=== PATIENT | female | born 1935 | race African-American/Black ===

== ENCOUNTER 2021-11-13 22:12 | Inpatient (IN) | payer MEDICARE ==
[~2021-11-13] VITALS: Ht 157.5 cm; Wt 41.5 kg
[2021-11-13 23:00] VITALS: BP 121/64
[2021-11-13] MEDS ORDERED: CEFTRIAXONE 1 GM VIAL IV SCH (23:00)
[2021-11-13] MEDS ORDERED: LATANOPROST2.5 ML OP (23:26)
[2021-11-13] MEDS ORDERED: AMLODIPINE BESYL5 MG PO (23:26)
[2021-11-13] MEDS ORDERED: ACYCLOVIR200 MG PO (23:26)
[2021-11-13] MEDS ORDERED: CITALOPRAM HBR20 MG PO (23:26)
[2021-11-14] VITALS (26 sets, daily range): BP systolic 102–149; BP diastolic 63–90
[2021-11-14] MEDS: IPRATROPIUM BROMIDE INHALER 12.9 GM INH INH SCH ×6 (00:15→19:15)
[2021-11-14] MEDS ORDERED: ALBUTEROL/IPRATROPIUM 3 ML NEB NEB SCH (01:00)
[2021-11-14] MEDS ORDERED: ALBUTEROL SULFATE HFA 8GM INHALATION AEROSOL INH PRN (03:00)
[2021-11-14] MEDS ORDERED: DOCUSATE SODIUM 100 MG CAP PO PRN (03:00)
[2021-11-14] MEDS ORDERED: ONDANSETRON HCL INJ 2MG/ML 2ML 2 MG/ML VIAL IV PRN (03:00)
[2021-11-14] MEDS ORDERED: ACETAMINOPHEN 325 MG TAB PO PRN (03:00)
[2021-11-14 03:49] LABS: ABG HCO3 37 mmol/L (22-26); ABG PCO2 47 mmHg (35-45); ABG PO2 118 mmHg (80-105); ABG TCO2 39
[2021-11-14 05:07] LABS: LYMPHOCYTES # (AUTO) 0.3 (1.0-3.2); MEAN CORPUSCULAR HEMOGLOBIN 33.1 pg (28-32); MEAN CORPUSCULAR HGB CONC 33.3 g/dL (31-35); MEAN CORPUSCULAR VOLUME 99.3 fL (81-99); MONOCYTES # (AUTO) 0.3 (0.2-0.8); NEUTROPHILS # (AUTO) 3.9 (2.1-6.9); NEUTROPHILS % 87.6 % (38.7-80.0); PLATELET COUNT 130 x10e3/uL (140-360); RED BLOOD COUNT 4.53 x10e6/uL (3.6-5.1); RED CELL DISTRIBUTION WIDTH 12.4 % (11.7-14.4)
[2021-11-14 05:13] LABS: INR 0.85; PROTHROMBIN TIME 12.3 seconds (11.9-14.5)
[2021-11-14 05:14] LABS: PARTIAL THROMBOPLASTIN TIME 27.3 seconds (23.8-35.5)
[2021-11-14 05:27] LABS: ALBUMIN 2.5 g/dL (3.5-5.0); ALBUMIN/GLOBULIN RATIO 0.9 (0.8-2.0); ANION GAP 14.9 mmol/L (8-16); CALCIUM 8.8 mg/dL (8.4-10.2); CREATININE, SERUM 0.63 mg/dL (0.57-1.11)
[2021-11-14 05:35] LABS: POTASSIUM 2.9 mmol/L (3.5-5.1)
[2021-11-14] MEDS ORDERED: METHYLPREDNISOLONE SOD SUCC 40 MG/ML VIAL 1ML IV SCH (06:00)
[2021-11-14] MEDS: POTASSIUM CHLORIDE 20MEQ/100ML 100 ML IV SCH ×2 (06:16→08:31)
[2021-11-14] MEDS ORDERED: SODIUM CHLORIDE 0.9% 250ML 250 ML ONE ×2 (06:29→16:23)
[2021-11-14] MEDS: ZINC SULFATE 50 MG CAP PO SCH (08:32)
[2021-11-14] MEDS: ASCORBIC ACID 500 MG TAB PO SCH ×2 (08:32→16:28)
[2021-11-14] MEDS: MULTIVITAMINS/MINERALS TAB PO SCH (08:32)
[2021-11-14] MEDS ORDERED: CEFTRIAXONE SOD 1 GM 50 ML IV SCH (09:00)
[2021-11-14] MEDS ORDERED: DEXAMETHASONE SOD PHOS 10 MG/1 ML VIAL IV SCH (09:00)
[2021-11-14] MEDS ORDERED: CEFTRIAXONE 1 GM VIAL IV SCH ×2 (09:00)
[2021-11-14] MEDS ORDERED: CEFTRIAXONE 1 GM in SODIUM CHLORIDE 0.9% 50ML 50 ML IV SCH (09:00)
[2021-11-14] MEDS: ENOXAPARIN SOD INJ 40 MG/0.4 ML SYR SC SCH ×2 (10:11→20:08)
[2021-11-14] MEDS ORDERED: SOD CHL 0.45%/POT CHL 20MEQ 1,000 ML IV ONE (10:30)
[2021-11-14] MEDS ORDERED: REMDESIVIR 200MG 200 MG in SODIUM CHLORIDE 0.9% 100 ML IV ONE (12:00)
[2021-11-14] MEDS: CEFTRIAXONE 1 GM in SODIUM CHLORIDE 0.9% 50ML 50 ML IV SCH (15:57)
[2021-11-14] MEDS ORDERED: ENOXAPARIN SOD INJ 40 MG/0.4 ML SYR SC SCH (17:00)
[2021-11-14] MEDS: METHYLPREDNISOLONE SOD SUCC 40 MG/ML VIAL 1ML IV SCH (20:08)
[2021-11-15] VITALS (21 sets, daily range): BP systolic 121–154; BP diastolic 66–99
[2021-11-15] MEDS: IPRATROPIUM BROMIDE INHALER 12.9 GM INH INH SCH ×6 (03:20→23:00)
[2021-11-15 05:01] LABS: BASOPHILS % 0.1 % (0.0-1.0); HEMATOCRIT 47.2 % (34.2-44.1); HEMOGLOBIN 15.2 g/dL (12.0-16.0); LYMPHOCYTES # (AUTO) 0.4 (1.0-3.2); LYMPHOCYTES % 6.1 % (18.0-39.1); MEAN CORPUSCULAR HEMOGLOBIN 32.8 pg (28-32); MEAN CORPUSCULAR HGB CONC 32.2 g/dL (31-35); MEAN CORPUSCULAR VOLUME 101.9 fL (81-99); MONOCYTES # (AUTO) 0.6 (0.2-0.8); NEUTROPHILS # (AUTO) 6.1 (2.1-6.9); NEUTROPHILS % 84.8 % (38.7-80.0); PLATELET COUNT 141 x10e3/uL (140-360); RED BLOOD COUNT 4.63 x10e6/uL (3.6-5.1); RED CELL DISTRIBUTION WIDTH 12.4 % (11.7-14.4)
[2021-11-15 05:28] LABS: ALBUMIN 2.4 g/dL (3.5-5.0); ALBUMIN/GLOBULIN RATIO 0.8 (0.8-2.0); ANION GAP 13.8 mmol/L (8-16); CALCIUM 8.5 mg/dL (8.4-10.2); CREATININE, SERUM 0.53 mg/dL (0.57-1.11); POTASSIUM 3.8 mmol/L (3.5-5.1)
[2021-11-15] MEDS: MULTIVITAMINS/MINERALS TAB PO SCH (09:01)
[2021-11-15] MEDS: ZINC SULFATE 50 MG CAP PO SCH (09:01)
[2021-11-15] MEDS: METHYLPREDNISOLONE SOD SUCC 40 MG/ML VIAL 1ML IV SCH ×2 (09:01→21:03)
[2021-11-15] MEDS: ASCORBIC ACID 500 MG TAB PO SCH ×2 (09:01→17:18)
[2021-11-15] MEDS: ENOXAPARIN SOD INJ 40 MG/0.4 ML SYR SC SCH ×2 (09:01→21:03)
[2021-11-15] MEDS: REMDESIVIR 100MG 100 MG in SODIUM CHLORIDE 0.9% 100 ML IV SCH (11:28)
[2021-11-15] MEDS: CEFTRIAXONE 1 GM in SODIUM CHLORIDE 0.9% 50ML 50 ML IV SCH (14:43)
[2021-11-15] MEDS ORDERED: SODIUM CHLORIDE 0.9% 250ML 500 ML ONE (14:50)
[2021-11-16] VITALS (8 sets, daily range): BP systolic 132–149; BP diastolic 81–98
[2021-11-16] MEDS: IPRATROPIUM BROMIDE INHALER 12.9 GM INH INH SCH ×6 (03:15→23:59)
[2021-11-16 06:01] LABS: BASOPHILS % 0.1 % (0.0-1.0); HEMATOCRIT 51.8 % (34.2-44.1); HEMOGLOBIN 16.7 g/dL (12.0-16.0); LYMPHOCYTES # (AUTO) 0.5 (1.0-3.2); LYMPHOCYTES % 5.4 % (18.0-39.1); MEAN CORPUSCULAR HEMOGLOBIN 32.8 pg (28-32); MEAN CORPUSCULAR HGB CONC 32.2 g/dL (31-35); MEAN CORPUSCULAR VOLUME 101.8 fL (81-99); MONOCYTES # (AUTO) 0.6 (0.2-0.8); MONOCYTES % 7.5 % (4.4-11.3); NEUTROPHILS # (AUTO) 7.2 (2.1-6.9); NEUTROPHILS % 85.7 % (38.7-80.0); PLATELET COUNT 186 x10e3/uL (140-360); RED BLOOD COUNT 5.09 x10e6/uL (3.6-5.1); RED CELL DISTRIBUTION WIDTH 12.5 % (11.7-14.4)
[2021-11-16 06:26] LABS: ALBUMIN 2.4 g/dL (3.5-5.0); ALBUMIN/GLOBULIN RATIO 0.8 (0.8-2.0); ANION GAP 14.5 mmol/L (8-16); CALCIUM 8.9 mg/dL (8.4-10.2); CREATININE, SERUM 0.58 mg/dL (0.57-1.11); POTASSIUM 3.5 mmol/L (3.5-5.1)
[2021-11-16] MEDS: METHYLPREDNISOLONE SOD SUCC 40 MG/ML VIAL 1ML IV SCH ×2 (08:58→20:56)
[2021-11-16] MEDS: ZINC SULFATE 50 MG CAP PO SCH (08:58)
[2021-11-16] MEDS: MULTIVITAMINS/MINERALS TAB PO SCH (08:58)
[2021-11-16] MEDS: ENOXAPARIN SOD INJ 40 MG/0.4 ML SYR SC SCH ×2 (08:58→20:56)
[2021-11-16] MEDS: ASCORBIC ACID 500 MG TAB PO SCH ×2 (08:58→16:34)
[2021-11-16] MEDS: REMDESIVIR 100MG 100 MG in SODIUM CHLORIDE 0.9% 100 ML IV SCH (12:09)
[2021-11-16] MEDS: CEFTRIAXONE 1 GM in SODIUM CHLORIDE 0.9% 50ML 50 ML IV SCH (16:31)
[2021-11-17] VITALS (7 sets, daily range): BP systolic 132–173; BP diastolic 77–97
[2021-11-17] MEDS: IPRATROPIUM BROMIDE INHALER 12.9 GM INH INH SCH ×6 (03:17→23:20)
[2021-11-17] MEDS: HYDRALAZINE HCL 20 MG/ML VIAL IV PRN (05:12)
[2021-11-17 06:21] LABS: BASOPHILS % 0.2 % (0.0-1.0); HEMATOCRIT 55.1 % (34.2-44.1); HEMOGLOBIN 18.3 g/dL (12.0-16.0); LYMPHOCYTES # (AUTO) 0.6 (1.0-3.2); LYMPHOCYTES % 5.4 % (18.0-39.1); MEAN CORPUSCULAR HEMOGLOBIN 32.8 pg (28-32); MEAN CORPUSCULAR HGB CONC 33.2 g/dL (31-35); MEAN CORPUSCULAR VOLUME 98.7 fL (81-99); MONOCYTES # (AUTO) 0.6 (0.2-0.8); MONOCYTES % 5.5 % (4.4-11.3); NEUTROPHILS # (AUTO) 9.5 (2.1-6.9); PLATELET COUNT 236 x10e3/uL (140-360); RED BLOOD COUNT 5.58 x10e6/uL (3.6-5.1); RED CELL DISTRIBUTION WIDTH 12.3 % (11.7-14.4)
[2021-11-17 06:42] LABS: ALBUMIN 2.6 g/dL (3.5-5.0); ALBUMIN/GLOBULIN RATIO 0.9 (0.8-2.0); ANION GAP 17.1 mmol/L (8-16); CALCIUM 8.5 mg/dL (8.4-10.2); CREATININE, SERUM 0.56 mg/dL (0.57-1.11); POTASSIUM 3.1 mmol/L (3.5-5.1)
[2021-11-17] MEDS ORDERED: POTASSIUM CHLORIDE 20 MEQ TAB CR PO STA (08:43)
[2021-11-17] MEDS: ENOXAPARIN SOD INJ 40 MG/0.4 ML SYR SC SCH (09:05)
[2021-11-17] MEDS: METHYLPREDNISOLONE SOD SUCC 40 MG/ML VIAL 1ML IV SCH (09:05)
[2021-11-17] MEDS: ZINC SULFATE 50 MG CAP PO SCH (09:05)
[2021-11-17] MEDS: MULTIVITAMINS/MINERALS TAB PO SCH (09:05)
[2021-11-17] MEDS: ASCORBIC ACID 500 MG TAB PO SCH ×2 (09:05→17:00)
[2021-11-17] MEDS ORDERED: AMIODARONE 900MG 500 ML IV ONE (11:00)
[2021-11-17] MEDS: REMDESIVIR 100MG 100 MG in SODIUM CHLORIDE 0.9% 100 ML IV SCH (11:47)
[2021-11-17] MEDS: METOPROLOL TARTRATE 25 MG TAB PO SCH (17:01)
[2021-11-17] MEDS ORDERED: METHYLPREDNISOLONE SOD SUCC 40 MG/ML VIAL 1ML IV SCH (21:00)
[2021-11-17] MEDS: ENOXAPARIN 30 MG/0.3 ML SYR SC SCH (21:14)
[2021-11-18] VITALS (8 sets, daily range): BP systolic 152–175; BP diastolic 92–96
[2021-11-18] MEDS: IPRATROPIUM BROMIDE INHALER 12.9 GM INH INH SCH ×6 (03:25→23:40)
[2021-11-18] MEDS: METHYLPREDNISOLONE SOD SUCC 40 MG/ML VIAL 1ML IV SCH (06:08)
[2021-11-18] MEDS: ENOXAPARIN 30 MG/0.3 ML SYR SC SCH ×2 (08:46→20:42)
[2021-11-18] MEDS: MULTIVITAMINS/MINERALS TAB PO SCH (08:46)
[2021-11-18] MEDS: ZINC SULFATE 50 MG CAP PO SCH (08:46)
[2021-11-18] MEDS: ASCORBIC ACID 500 MG TAB PO SCH ×2 (08:46→17:05)
[2021-11-18] MEDS: METOPROLOL TARTRATE 25 MG TAB PO SCH ×2 (08:46→17:05)
[2021-11-18] MEDS: REMDESIVIR 100MG 100 MG in SODIUM CHLORIDE 0.9% 100 ML IV SCH (12:22)
[2021-11-18] MEDS ORDERED: REMDESIVIR 100MG 100 MG IV ONE (12:34)
[2021-11-18] MEDS ORDERED: SODIUM CHLORIDE 0.9% 100 ML ONE (13:01)
[2021-11-18] MEDS: HYDRALAZINE HCL 20 MG/ML VIAL IV PRN (20:59)
[2021-11-19] VITALS (10 sets, daily range): BP systolic 121–171; BP diastolic 87–108
[2021-11-19] MEDS: IPRATROPIUM BROMIDE INHALER 12.9 GM INH INH SCH ×6 (03:54→23:16)
[2021-11-19] MEDS: METHYLPREDNISOLONE SOD SUCC 40 MG/ML VIAL 1ML IV SCH (06:28)
[2021-11-19] MEDS: CITALOPRAM HYDROBROMIDE 20 MG TAB PO SCH (08:32)
[2021-11-19] MEDS: ZINC SULFATE 50 MG CAP PO SCH (08:33)
[2021-11-19] MEDS: MULTIVITAMINS/MINERALS TAB PO SCH (08:33)
[2021-11-19] MEDS: ASCORBIC ACID 500 MG TAB PO SCH ×2 (08:33→16:53)
[2021-11-19] MEDS: METOPROLOL TARTRATE 25 MG TAB PO SCH (08:33)
[2021-11-19] MEDS: ENOXAPARIN 30 MG/0.3 ML SYR SC SCH ×2 (08:33→21:50)
[2021-11-19] MEDS ORDERED: ONDANSETRON HCL 4 MG ORAL DISINTEGRATING TAB PO PRN (08:45)
[2021-11-19] MEDS: AMIODARONE HCL 200 MG TAB PO SCH ×2 (11:28→16:53)
[2021-11-19 12:19] LABS: BASOPHILS % 0.2 % (0.0-1.0); HEMOGLOBIN 17.6 g/dL (12.0-16.0); LYMPHOCYTES # (AUTO) 0.4 (1.0-3.2); LYMPHOCYTES % 2.2 % (18.0-39.1); MEAN CORPUSCULAR HGB CONC 32.6 g/dL (31-35); MEAN CORPUSCULAR VOLUME 101.3 fL (81-99); MONOCYTES # (AUTO) 0.7 (0.2-0.8); MONOCYTES % 4.2 % (4.4-11.3); NEUTROPHILS # (AUTO) 16.1 (2.1-6.9); NEUTROPHILS % 92.7 % (38.7-80.0); PLATELET COUNT 222 x10e3/uL (140-360); RED BLOOD COUNT 5.33 x10e6/uL (3.6-5.1); RED CELL DISTRIBUTION WIDTH 12.6 % (11.7-14.4)
[2021-11-19 12:50] LABS: ALBUMIN 2.5 g/dL (3.5-5.0); ALBUMIN/GLOBULIN RATIO 0.9 (0.8-2.0); ANION GAP 17.5 mmol/L (8-16); CALCIUM 8.1 mg/dL (8.4-10.2); CREATININE, SERUM 0.65 mg/dL (0.57-1.11); POTASSIUM 3.5 mmol/L (3.5-5.1)
[2021-11-19] MEDS: METOPROLOL TARTRATE 50 MG TAB PO SCH (16:54)
[2021-11-19] MEDS: HYDRALAZINE HCL 20 MG/ML VIAL IV PRN (16:54)
[2021-11-20 00:22] VITALS: BP 144/69
[2021-11-20] MEDS: IPRATROPIUM BROMIDE INHALER 12.9 GM INH INH SCH ×6 (03:10→22:45)
[2021-11-20 04:00] VITALS: BP 140/95
[2021-11-20] MEDS: METHYLPREDNISOLONE SOD SUCC 40 MG/ML VIAL 1ML IV SCH (06:13)
[2021-11-20 06:26] LABS: BASOPHILS % 0.2 % (0.0-1.0); HEMATOCRIT 50.3 % (34.2-44.1); HEMOGLOBIN 16.1 g/dL (12.0-16.0); LYMPHOCYTES # (AUTO) 0.6 (1.0-3.2); LYMPHOCYTES % 5.4 % (18.0-39.1); MEAN CORPUSCULAR HEMOGLOBIN 32.6 pg (28-32); MEAN CORPUSCULAR VOLUME 101.8 fL (81-99); MONOCYTES # (AUTO) 0.7 (0.2-0.8); MONOCYTES % 6.2 % (4.4-11.3); NEUTROPHILS # (AUTO) 9.3 (2.1-6.9); NEUTROPHILS % 87.5 % (38.7-80.0); PLATELET COUNT 183 x10e3/uL (140-360); RED BLOOD COUNT 4.94 x10e6/uL (3.6-5.1); RED CELL DISTRIBUTION WIDTH 12.7 % (11.7-14.4)
[2021-11-20 06:54] LABS: ANION GAP 10.5 mmol/L (8-16); CALCIUM 8.7 mg/dL (8.4-10.2); CREATININE, SERUM 0.63 mg/dL (0.57-1.11); POTASSIUM 3.5 mmol/L (3.5-5.1)
[2021-11-20 08:17] VITALS: BP 153/101
[2021-11-20] MEDS: CITALOPRAM HYDROBROMIDE 20 MG TAB PO SCH (09:16)
[2021-11-20] MEDS: AMIODARONE HCL 200 MG TAB PO SCH ×2 (09:16→17:00)
[2021-11-20] MEDS: METOPROLOL TARTRATE 50 MG TAB PO SCH ×2 (09:17→17:01)
[2021-11-20] MEDS: ASCORBIC ACID 500 MG TAB PO SCH ×2 (09:17→17:01)
[2021-11-20] MEDS: ENOXAPARIN 30 MG/0.3 ML SYR SC SCH ×2 (09:17→21:57)
[2021-11-20] MEDS: ZINC SULFATE 50 MG CAP PO SCH (09:17)
[2021-11-20] MEDS: MULTIVITAMINS/MINERALS TAB PO SCH (09:17)
[2021-11-20 16:58] VITALS: BP 108/58
[2021-11-20 20:00] VITALS: BP 119/91
[2021-11-20 21:40] VITALS: BP 119/91
[2021-11-21] VITALS (8 sets, daily range): BP systolic 119–150; BP diastolic 75–97
[2021-11-21] MEDS: IPRATROPIUM BROMIDE INHALER 12.9 GM INH INH SCH ×6 (03:30→23:46)
[2021-11-21 05:06] LABS: ANION GAP 12.5 mmol/L (8-16); CALCIUM 8.5 mg/dL (8.4-10.2); CREATININE, SERUM 0.67 mg/dL (0.57-1.11); POTASSIUM 3.5 mmol/L (3.5-5.1)
[2021-11-21] MEDS: METHYLPREDNISOLONE SOD SUCC 40 MG/ML VIAL 1ML IV SCH (05:10)
[2021-11-21] MEDS: CITALOPRAM HYDROBROMIDE 20 MG TAB PO SCH (10:28)
[2021-11-21] MEDS: ENOXAPARIN 30 MG/0.3 ML SYR SC SCH ×2 (10:29→21:17)
[2021-11-21] MEDS: METOPROLOL TARTRATE 50 MG TAB PO SCH ×2 (10:29→17:00)
[2021-11-21] MEDS: AMIODARONE HCL 200 MG TAB PO SCH ×2 (10:29→16:48)
[2021-11-21] MEDS: ZINC SULFATE 50 MG CAP PO SCH (10:29)
[2021-11-21] MEDS: ASCORBIC ACID 500 MG TAB PO SCH ×2 (10:29→16:48)
[2021-11-21] MEDS: MULTIVITAMINS/MINERALS TAB PO SCH (10:29)
[2021-11-22 00:24] VITALS: BP 122/75
[2021-11-22] MEDS: IPRATROPIUM BROMIDE INHALER 12.9 GM INH INH SCH ×4 (02:21→17:23)
[2021-11-22] MEDS: METHYLPREDNISOLONE SOD SUCC 40 MG/ML VIAL 1ML IV SCH (05:11)
[2021-11-22 05:44] VITALS: BP 133/91
[2021-11-22 08:11] VITALS: BP 139/80
[2021-11-22 08:20] VITALS: BP 139/82
[2021-11-22] MEDS: CITALOPRAM HYDROBROMIDE 20 MG TAB PO SCH (10:24)
[2021-11-22] MEDS: MULTIVITAMINS/MINERALS TAB PO SCH (10:25)
[2021-11-22] MEDS: AMIODARONE HCL 200 MG TAB PO SCH ×2 (10:25→16:27)
[2021-11-22] MEDS: ASCORBIC ACID 500 MG TAB PO SCH ×2 (10:25→16:27)
[2021-11-22] MEDS: ZINC SULFATE 50 MG CAP PO SCH (10:25)
[2021-11-22] MEDS: ENOXAPARIN 30 MG/0.3 ML SYR SC SCH (10:26)
[2021-11-22] MEDS: METOPROLOL TARTRATE 50 MG TAB PO SCH ×2 (10:32→16:27)
[2021-11-22 11:48] VITALS: BP 116/73
[2021-11-22 16:17] VITALS: BP 130/74
== END 2021-11-22 17:39 | disposition home health service (06) | DRG 177 ==
LOC: ICU 22:12 → MED/SURG3 11-15 20:42
PROVIDERS: ADMIT Family Medicine; ATTEND Family Medicine
PROC: 02HV33Z Insertion of Infusion Device into Superior Vena Cava, Percutaneous Approach (ICD-10-PCS; principal; 2021-11-14)
PROC: 3E0433Z Introduction of Anti-inflammatory into Central Vein, Percutaneous Approach (ICD-10-PCS; 2021-11-14)
PROC: XW043E5 Introduction of Remdesivir Anti-infective into Central Vein, Percutaneous Approach, New Technology Group 5 (ICD-10-PCS; 2021-11-14)
DX: U07.1 COVID-19 (principal); J12.82 Pneumonia due to coronavirus disease 2019; J96.22 Acute and chronic respiratory failure with hypercapnia; J96.21 Acute and chronic respiratory failure with hypoxia; N39.0 Urinary tract infection, site not specified; J44.1 Chronic obstructive pulmonary disease with (acute) exacerbation; E87.0 Hyperosmolality and hypernatremia; F05 Delirium due to known physiological condition; Z99.81 Dependence on supplemental oxygen; E87.6 Hypokalemia; I10 Essential (primary) hypertension; Z88.8 Allergy status to other drugs, medicaments and biological substances; F03.90 Unspecified dementia, unspecified severity, without behavioral disturbance, psychotic disturbance, mood disturbance, and anxiety; I48.91 Unspecified atrial fibrillation
CPT/HCPCS: 36415; 36569; 36600; 71045; 80048; 80053; 82805; 85025; 85610; 85730; 87040; 93005; 94660; 94664; 94799; 97139; J0360; J0456; J0696; J1650; J2920; J3480; J7050; U0002